=== PATIENT | female | born 1940 | race Caucasian/White ===

== ENCOUNTER → 2016-07-30 | Outpatient (CLI) | payer MEDICARE ==
[2016-07-30 09:30] LABS: PTH INTACT 103.3 pg/mL (14.0-72.0); VITAMIN D, 25-HYDROXY 22.9 ng/mL (30-100)
== END | disposition home or self-care (01) ==
LOC: LAB 08:23
PROVIDERS: Family Medicine
DX: E83.52 Hypercalcemia (principal)